=== PATIENT | male | born 1985 | race African-American/Black ===

== ENCOUNTER 2019-09-26 16:49 | Emergency (ER) | payer OTHER ==
[~2019-09-26] VITALS: Ht 170.2 cm; Wt 127.0 kg
[2019-09-26 17:04] VITALS: BP 119/71
[2019-09-26] MEDS ORDERED: CYCLOBENZAPRINE5 MG PO (17:59)
[2019-09-26] MEDS ORDERED: LIDOCAINE PAIN1 EACH TRANSDERM (18:00)
== END 2019-09-26 18:00 | disposition home or self-care (01) ==
LOC: ER 16:49
DX: M25.512 Pain in left shoulder (principal); M25.561 Pain in right knee; L53.9 Erythematous condition, unspecified; M54.6 Pain in thoracic spine; M79.661 Pain in right lower leg; V89.2XXA Person injured in unspecified motor-vehicle accident, traffic, initial encounter; Y93.89 Activity, other specified; Y92.89 Other specified places as the place of occurrence of the external cause; Y99.8 Other external cause status

== ENCOUNTER 2020-05-12 06:37 | Emergency (ER) | payer OTHER ==
[~2020-05-12] VITALS: Ht 172.7 cm; Wt 108.9 kg
[~2020-05-12 06:37] MED LIST: CYCLOBENZAPRINE5 MG PO; LIDOCAINE PAIN1 EACH TRANSDERM
[2020-05-12 08:53] VITALS: BP 122/80
== END 2020-05-12 08:53 | disposition home or self-care (01) ==
LOC: ER 06:37
DX: I83.891 Varicose veins of right lower extremity with other complications (principal); F12.90 Cannabis use, unspecified, uncomplicated; Z79.899 Other long term (current) drug therapy

== ENCOUNTER 2021-01-15 20:54 | Emergency (ER) | payer OTHER ==
[~2021-01-15] VITALS: Ht 175.3 cm; Wt 122.5 kg
[2021-01-15 21:41] LABS: ABSOLUTE NEUTROPHILS 8.8 thou/uL (1.4-8.2); BASOPHILS 0.6 % (0.0-2.0); EOSINOPHILS 1.6 % (0.0-3.0); HEMATOCRIT 38.9 % (42.0-52.0); HEMOGLOBIN 13.2 gm/dL (14.0-18.0); LYMPHOCYTES 26.6 % (24.0-44.0); MCH 32.6 pg (26.0-34.0); MCHC 33.8 g/dL (28.0-37.0); MCV 96.4 fL (80.0-100.0); MONOCYTES 9.7 % (1.0-8.0); PLATELET COUNT 283 thou/uL (150-400); POLYS 61.5 % (36.0-66.0); RBC 4.04 mil/uL (4.50-6.00); RDW 14.1 % (10.5-14.5); WBC 14.4 thou/uL (4.0-11.0)
[2021-01-15 22:20] LABS: CALCIUM 8.6 mg/dL (8.5-10.1); CREATININE 1.3 mg/dL (0.7-1.3); POTASSIUM 3.5 mmol/L (3.5-5.1)
[2021-01-15 22:26] LABS: ALBUMIN 3.2 g/dL (3.4-5.0); TOTAL BILIRUBIN 0.3 mg/dL (0.2-1.0); TOTAL PROTEIN 6.7 g/dL (6.4-8.2)
[2021-01-15 22:47] VITALS: BP 138/98
--- NOTE | 2021-01-19 07:33 | EKG ---
[address] [place] [address] ELECTROCARDIOGRAM REPORT Name: AMANDEEP CHAPINTIFFANIE Room #: [facility]ENTERMark#: [id number] Admission: 01/15/21 Attend Phys: Discharge: 01/15/21 Date of : 85 Report #: [id number] [facility] ED Test Date: 2021-01-15 Test Time: 21:02:08 Pat Name: REGAN CHAPIN Department: Room: Gender: Splitter Machine: VANESSA : 1985 Requested By: [place] Order Number: [id number] MD: Carlos Amaya Measurements Intervals [place] Rate: 65 P: 45 W[place]: 145 QRS: 28 QRSD: 94 T: 30 QT: 403 QTc: 419 Interpretive Statements Sinus rhythm RSR' in V1 or V2, probably normal variant No previous ECG available for comparison Electronically Signed On 01-19-2021 7:33:26 CDT by Carlos Amaya [email or web address] <ELECTRONICALLY SIGNED> By: Carlos Amaya MD, [facility] 01/19/21 0733 01 01 Carlos Amaya MD, FACC /EPI
== END 2021-01-15 22:40 | disposition home or self-care (01) ==
LOC: ER 20:54
PROVIDERS: Physician Assistant
DX: J06.9 Acute upper respiratory infection, unspecified (principal); Z20.822 Contact with and (suspected) exposure to COVID-19; F17.210 Nicotine dependence, cigarettes, uncomplicated